=== PATIENT | female | born 1965 | race Caucasian/White ===

== ENCOUNTER 2019-06-22 10:09 | Emergency (ER) | payer OTHER ==
[~2019-06-22] VITALS: Ht 175.3 cm; Wt 72.6 kg
[~2019-06-22 10:09] MED LIST: CALCIUM500 M1; FISH OIL 1,001000 M2; PREMPHASE 0.621 EAC1
[2019-06-22 10:51] LABS: ABSOLUTE NEUTROPHILS 5.4 thou/uL (1.4-8.2); EOSINOPHILS 0.8 % (0.0-3.0); HEMATOCRIT 43.3 % (37.0-47.0); LYMPHOCYTES 31.2 % (24.0-44.0); MCH 31.8 pg (26.0-34.0); MCHC 34.6 g/dL (28.0-37.0); MCV 91.9 fL (80.0-100.0); RBC 4.71 mil/uL (4.20-5.00); RDW 12.2 % (10.5-14.5)
[2019-06-22 10:58] LABS: ANION GAP 15 mmol/L (7-16); BUN 9 mg/dL (7-18); CALCIUM 10.6 mg/dL (8.5-10.1); CHLORIDE 104 mmol/L (98-107); CO2 22 mmol/L (21-32); CREATININE 0.7 mg/dL (0.6-1.0); GLUCOSE 89 mg/dL (74-106); POTASSIUM 3.8 mmol/L (3.5-5.1); SODIUM 141 mmol/L (136-145)
[2019-06-22 11:06] LABS: TROPONIN-I <0.06 ng/mL (<0.06)
[2019-06-22] MEDS ORDERED: VITAMIN B12-FO1 EAC1 PO (11:08)
[2019-06-22] MEDS ORDERED: SUPER THERAVIT1 EACH PO (11:09)
[2019-06-22] MEDS ORDERED: VITAMIN D3 COM1 EACH PO (11:09)
[2019-06-22 11:20] LABS: PLATELET COUNT 294 thou/uL (150-400); PLATELET ESTIMATE NORMAL
[2019-06-22] MEDS ORDERED: ATIVAN0.5 M1 PO (12:00)
[2019-06-22 12:21] VITALS: BP 116/69
--- NOTE | 2019-06-22 12:23 | EKG ---
[address] [address] ELECTROCARDIOGRAM REPORT Name: MOODY CARROLLAlison BRAND Room #: [facility]#: [id number] Admission: 06/22/19 Attend Phys: Discharge: 06/22/19 Date of : 63 Report #: [id number] THIS REPORT FOR: //name// [facility] ED Test Date: 2019-06-22 Test Time: 10:10:27 Pat Name: JOSE R CARROLL Department: Room: Gender: F Senior Service Aide: REAL : 1965 Requested By: Davie Melissa Order Number: [id number] MD: Charles Washington Measurements Intervals [place] Rate: 71 P: 65 ME: 147 QRS: 77 QRSD: 85 T: 70 QT: 383 QTc: 417 Interpretive Statements Sinus rhythm Probable left atrial enlargement Anteroseptal infarct, age indeterminate Compared to ECG 05/06/2015 10:50:26 Myocardial infarct finding now present Sinus bradycardia no longer present Electronically Signed On 06-22-2019 12:22:51 [employer]IST by Charles Washington [email or web address] <ELECTRONICALLY SIGNED> By: Charles Washington MD 06/22/19 1222 1010 1010 Charles Washington MD /RACHELLE
== END 2019-06-22 12:22 | disposition home or self-care (01) ==
LOC: ER 10:09
PROVIDERS: Emergency Medicine
DX: R07.9 Chest pain, unspecified (principal); F17.210 Nicotine dependence, cigarettes, uncomplicated; Z90.710 Acquired absence of both cervix and uterus; Z88.2 Allergy status to sulfonamides